=== PATIENT | female | born 2000 | race Caucasian/White ===

== ENCOUNTER 2022-07-12 02:23 | Day surgery (SDC) | payer MEDICAID ==
[~2022-07-12] VITALS: Ht 162.6 cm; Wt 59.0 kg
[2022-07-12] VITALS (8 sets, daily range): BP systolic 105–119; BP diastolic 63–81
[2022-07-12] MEDS ORDERED: IOHEXOL 350 MG/ML 100 ML (OMNIPAQUE 350) VIAL IV ONE (03:30)
[2022-07-12] MEDS ORDERED: LACTATED RINGERS 1,000 ML IV ONE (03:30)
[2022-07-12] MEDS ORDERED: PANTOPRAZOLE 40 MG (PROTONIX) VIAL IV ONE (03:30)
[2022-07-12] MEDS ORDERED: ONDANSETRON 4 MG/2 ML (SDV) Z0FRAN IVP ONE (03:30)
[2022-07-12] MEDS ORDERED: NS 100 ML (IVPB) BAG IV ONE (03:30)
[2022-07-12] MEDS ORDERED: HOLD METFORMIN - RECEIVED CONTRAST 20 ML VIAL IV SCH (03:30)
[2022-07-12 03:41] LABS: BILIRUBIN,URINE NEGATIVE (NEGATIVE); CLARITY,URINE CLEAR; COLOR,URINE YELLOW; GLUCOSE, URINE (UA) NEGATIVE (NEGATIVE); KETONES,URINE NEGATIVE (NEGATIVE); LEUKOCYTE ESTERASE ,URINE TRACE (NEGATIVE); NITRITE,URINE NEGATIVE (NEGATIVE); PROTEIN,URINE NEGATIVE (NEGATIVE)
[2022-07-12 03:47] LABS: BASOPHILS % (AUTO) 0 % (0-10); EOSINOPHILS # (AUTO) 0.1 10^3/uL (0.0-0.3); EOSINOPHILS % (AUTO) 1 % (0-10); HEMATOCRIT 39 % (35-52); HEMOGLOBIN 13.4 g/dL (11.5-16.0); LYMPHOCYTES # (AUTO) 1.3 10^3/uL (1.0-4.0); LYMPHOCYTES % (AUTO) 10 % (12-44); MEAN CORPUSCULAR HEMOGLOBIN 33 pg (25-34); MEAN CORPUSCULAR HGB CONC 34 g/dL (32-36); MEAN CORPUSCULAR VOLUME 95 fL (80-99); MEAN PLATELET VOLUME 9.9 fL (9.0-12.2); MONOCYTES # (AUTO) 0.8 10^3/uL (0.0-1.0); MONOCYTES % (AUTO) 6 % (0-12); NEUTROPHILS # (AUTO) 10.1 10^3/uL (1.8-7.8); NEUTROPHILS % (AUTO) 82 % (42-75); PLATELET COUNT 205 10^3/uL (130-400); WHITE BLOOD COUNT 12.2 10^3/uL (4.3-11.0)
[2022-07-12 03:49] LABS: AMPHETAMINE SCREEN, URINE NEGATIVE (NEGATIVE); BARBITURATE SCREEN URINE NEGATIVE (NEGATIVE); BENZODIAZEPINES SCREEN URINE NEGATIVE (NEGATIVE); CANNABINOID SCREEN, URINE NEGATIVE (NEGATIVE); COCAINE SCREEN URINE NEGATIVE (NEGATIVE); METHADONE STAT NEGATIVE (NEGATIVE); OPIATE SCREEN URINE NEGATIVE (NEGATIVE); OXYCODONE STAT NEGATIVE (NEGATIVE); PROPOXYPHENE STAT NEGATIVE (NEGATIVE); TRICYCLIC ANTIDEPRESSANTS SCRE NEGATIVE (NEGATIVE)
[2022-07-12 04:01] LABS: ALBUMIN 4.6 GM/DL (3.2-4.5)
[2022-07-12 04:02] LABS: AMYLASE 42 U/L (25-125); CHLORIDE 106 MMOL/L (98-107); POTASSIUM 3.6 MMOL/L (3.6-5.0); SODIUM 137 MMOL/L (135-145)
[2022-07-12 04:03] LABS: BACTERIA,URINE FEW /HPF; WBC,URINE 0-2 /HPF
[2022-07-12 04:04] LABS: GLUCOSE 97 MG/DL (70-105); TOTAL PROTEIN 7.6 GM/DL (6.4-8.2)
[2022-07-12 04:05] LABS: CARBON DIOXIDE 20 MMOL/L (21-32)
[2022-07-12 04:06] LABS: BILIRUBIN,TOTAL 0.6 MG/DL (0.1-1.0)
[2022-07-12 04:08] LABS: ALKALINE PHOSPHATASE 65 U/L (40-136); CREATININE SERUM 0.74 MG/DL (0.60-1.30); GFR ESTIMATED 119
[2022-07-12 04:09] LABS: BUN/CREATININE RATIO 23
[2022-07-12 04:11] LABS: ALANINE AMINOTRANSFERASE 12 U/L (0-55); LIPASE 23 U/L (8-78)
--- NOTE | 2022-07-12 04:52 | ED Abdominal Pain ---
General Chief Complaint: Abdominal/GI Problems Stated Complaint: UPPER ABD PAIN Nursing Triage Note: Pt ambulates to ED 7 with c/o upper abdominal pain since 8PM. States that it feels like "a stitch in your side, but on top of stomach". Pt last ate at 7PM, reports normal BM earlier in day, slight nausea reported upon arrival. Pt denies taking any medication for the pain, rating 8/10, reports being unable to sleep, so came to ER. 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 NORMAL. ON OCP'S. NO HISTORY OF SIMILAR NO PAST MEDICAL HISTORY NO PRIOR [id number] DENIES SMOKING, OCCASIONAL ALCOHOL AND DENIES DRUG USE PSU STUDENT FROM [place], [place] Allergies and Home Medications Allergies Coded Allergies: No Known Drug Allergies (Unverified , 07/12/22) Review of Systems Review of Systems Constitutional: no symptoms reported Respiratory: No Symptoms Reported Cardiovascular: No Symptoms Reported Gastrointestinal: See HPI, Abdominal Pain; Denies Constipated, Denies Diarrhea; Nausea; Denies Poor Appetite, Denies Vomiting Genitourinary: No Symptoms Reported Musculoskeletal: no symptoms reported Skin: no symptoms reported Psychiatric/Neurological: No Symptoms Reported Endocrine: No Symptoms Reported Hematologic/Lymphatic: No Symptoms Reported Past Aaypzzd-Ozbsja-Imfyfy Hx Patient Social History Tobacco Use?: No Use of E-Cig and/or Vaping dev: No Substance use?: No Alcohol Use?: Yes Alcohol Frequency: Rarely Pt feels they are or have been: No Immunizations Up To Date Influenza Vaccine Up-to-Date: No; Not Current COVID19 Vaccine Card Maker: None Past Medical History Surgeries: No Respiratory: No Cardiac: No Neurological: No : No Last Menstrual Period: Jun 21, 2022 Reproductive Disorders: No Genitourinary: No Gastrointestinal: No Musculoskeletal: No Endocrine: No HEENT: No Cancer: No Psychosocial: No Integumentary: No Blood Disorders: No Physical Exam Vital Signs Vital Signs - First Documented 07/12/22 03:17 Temp 35.6 Pulse 74 Resp 16 B/P (MAP) 112/83 (93) Pulse Ox 100 O2 Delivery Room Air Capillary Refill : Height/Weight/BMI Height: '" Weight: lbs. oz. kg; 22.00 BMI Method: General Appearance: WD/WN, no apparent distress, thin, other (WALKS UPRIGHT AND MOVES WITHOUT DIFFICULTY) HEENT: PERRL/EOMI; No scleral icterus (R), No scleral icterus (L) Neck: normal inspection Respiratory: normal breath sounds, no respiratory distress, no accessory muscle use Cardiovascular: regular rate, rhythm, no murmur Gastrointestinal: normal bowel sounds, soft, no organomegaly, no pulsatile mass; No distended, No guarding, No rebound; tenderness (MILD EPIGASTRIC AND MILD SUPRAPUBIC TENDERNESS); No hernia, No mass Extremities: normal inspection, normal capillary refill Back: normal inspection, no CVA tenderness 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, no motor/sensory deficits, alert, normal mood/affect, oriented x 3 Skin: normal color, warm/dry, tattoos/piercings Progress/Results/Core Measures Results/Orders Lab Results Laboratory Tests Test 07/12/22 03:26 07/12/22 03:38 Range/Units Urine Color YELLOW Urine Clarity CLEAR Urine pH 6.0 5-9 Urine Specific [place] >=1.030 1.016-1.022 Urine Protein NEGATIVE NEGATIVE Urine Glucose (UA) NEGATIVE NEGATIVE Urine Ketones NEGATIVE NEGATIVE Urine Nitrite NEGATIVE NEGATIVE Urine Bilirubin NEGATIVE NEGATIVE Urine Urobilinogen 0.2 < = 1.0 MG/DL Urine Leukocyte Esterase TRACE H NEGATIVE Urine RBC (Auto) TRACE-I H NEGATIVE Urine RBC NONE /HPF Urine WBC 0-2 /HPF Urine Crystals NONE /LPF Urine Bacteria FEW H /HPF Urine Casts NONE /LPF Urine Mucus NEGATIVE /LPF Urine Culture Indicated YES Urine Opiates Screen NEGATIVE NEGATIVE Urine Oxycodone Screen NEGATIVE NEGATIVE Urine Methadone Screen NEGATIVE NEGATIVE Urine Propoxyphene Screen NEGATIVE NEGATIVE Urine Barbiturates Screen NEGATIVE NEGATIVE Ur Tricyclic Antidepressants Screen NEGATIVE NEGATIVE Urine Phencyclidine Screen NEGATIVE NEGATIVE Urine Amphetamines Screen NEGATIVE NEGATIVE Urine Methamphetamines Screen NEGATIVE NEGATIVE Urine Benzodiazepines Screen NEGATIVE NEGATIVE Urine Cocaine Screen NEGATIVE NEGATIVE Urine Cannabinoids Screen NEGATIVE NEGATIVE White Blood Count 12.2 H 4.3-11.0 10^3/uL Red Blood Count 4.11 3.80-5.11 10^6/uL Hemoglobin 13.4 11.5-16.0 g/dL Hematocrit 39 35-52 % Mean Corpuscular Volume 95 80-99 fL Mean Corpuscular Hemoglobin 33 25-34 pg Mean Corpuscular Hemoglobin Concent 34 32-36 g/dL Red Cell Distribution Width 12.1 10.0-14.5 % Platelet Count 205 130-400 10^3/uL Mean Platelet Volume 9.9 9.0-12.2 fL Immature Granulocyte % (Auto) 0 % Neutrophils (%) (Auto) 82 H 42-75 % Lymphocytes (%) (Auto) 10 L 12-44 % Monocytes (%) (Auto) 6 0-12 % Eosinophils (%) (Auto) 1 0-10 % Basophils (%) (Auto) 0 0-10 % Neutrophils # (Auto) 10.1 H 1.8-7.8 10^3/uL Lymphocytes # (Auto) 1.3 1.0-4.0 10^3/uL Monocytes # (Auto) 0.8 0.0-1.0 10^3/uL Eosinophils # (Auto) 0.1 0.0-0.3 10^3/uL Basophils # (Auto) 0.0 0.0-0.1 10^3/uL Immature Granulocyte # (Auto) 0.0 0.0-0.1 10^3/uL Sodium Level 137 135-145 MMOL/L Potassium Level 3.6 3.6-5.0 MMOL/L Chloride Level 106 98-107 MMOL/L Carbon Dioxide Level 20 L 21-32 MMOL/L Anion Gap 11 5-14 MMOL/L Blood Urea Nitrogen 17 7-18 MG/DL Creatinine 0.74 0.60-1.30 MG/DL Estimat Glomerular Filtration Rate 119 BUN/Creatinine Ratio 23 Glucose Level 97 70-105 MG/DL Calcium Level 9.0 8.5-10.1 MG/DL Corrected Calcium 8.5-10.1 MG/DL Total Bilirubin 0.6 0.1-1.0 MG/DL Aspartate Amino Transf (AST/SGOT) 17 5-34 U/L Alanine Aminotransferase (ALT/SGPT) 12 0-55 U/L Alkaline Phosphatase 65 40-136 U/L Total Protein 7.6 6.4-8.2 GM/DL Albumin 4.6 H 3.2-4.5 GM/DL Amylase Level 42 25-125 U/L Lipase 23 8-78 U/L Serum Alcohol < 10 <10 MG/DL My Orders Orders - LEDY CROWELL DO Ed Iv/Invasive Line Start (07/12/22 03:24) Urine Bedside (07/12/22 03:24) Amylase (07/12/22 03:24) Cbc With Automated Diff (07/12/22 03:24) Comprehensive Metabolic Panel (07/12/22 03:24) Lipase (07/12/22 03:24) Ua Culture If Indicated (07/12/22 03:24) Ct Abdomen/Pelvis W (07/12/22 03:24) Ed Iv/Invasive Line Start (07/12/22 03:24) Lactated Ringers (Lr 1000 Ml Iv Solution (07/12/22 03:30) Ondansetron Injection (Zofran Injectio (07/12/22 03:30) Pantoprazole Injection (Protonix Injecti (07/12/22 03:30) Alcohol (07/12/22 03:24) Drug Screen Stat (Urine) (07/12/22 03:24) Iohexol Injection (Omnipaque 350 Mg/Ml 1 (07/12/22 03:30) Received Contrast (Hold Metformin- Contr (07/12/22 03:30) Ns (Ivpb) (Sodium Chloride 0.9% Ivpb Bag (07/12/22 03:30) Urine Culture (07/12/22 03:26) Medications Given in ED Current Medications Medications Dose Ordered Sig/Brock Route Start Time Stop Time Status Last Admin Dose Admin Iohexol 100 ml ONCE ONCE IV 07/12/22 03:30 07/12/22 03:31 DC 07/12/22 03:56 65 ML Lactated Ringer's 1,000 ml @ 0 mls/hr Q0M ONCE IV 07/12/22 03:30 07/12/22 03:31 DC 07/12/22 03:43 999 MLS/HR Ondansetron HCl 4 mg ONCE ONCE IVP 07/12/22 03:30 07/12/22 03:31 DC 07/12/22 03:43 4 MG Pantoprazole 40 mg ONCE ONCE IV 07/12/22 03:30 07/12/22 03:31 DC 07/12/22 03:43 40 MG Sodium Chloride 100 ml ONCE ONCE IV 07/12/22 03:30 07/12/22 03:31 DC 07/12/22 03:56 80 ML Vital Signs/I&O 07/12/22 03:17 Temp 35.6 Pulse 74 Resp 16 B/P (MAP) 112/83 (93) Pulse Ox 100 O2 Delivery Room Air Blood Pressure Mean: 93 Progress Progress Note : Progress Note GIVEN: -IV FLUIDS -ZOFRAN -PROTONIX Diagnostic Imaging Comments CT ABDOMEN/PELVIS-- Reviewed: Reviewed by Me Departure Departure-Patient Inst. Referrals: LEONIDAS GOLDMAN MD (PCP/Family) Primary Care Physician LEDY CROWELL DO Jul 12, 2022 04:52
[2022-07-12] MEDS ORDERED: fentaNYL INJ 100 MCG/2 ML AMP IVP ONE (06:00)
--- NOTE | 2022-07-12 06:26 | Consultation - Surgery ---
GUILLERMINA JANSEN 07/12/22 0626: History of Present Illness History of Present Illness Patient Consulted On(megha/time) 07/12/22 06:20 Date Seen by Provider: Jul 12, 2022 Time Seen by Provider: 06:00 History of Present Illness Kendal Perez is a 21 yo female that presenting to the ED with epigastric pain that radiates midline in the abdomen region. Pt is laying in the bed with her knees flexed. Pt is present with boyfriend and was able to ambulate inside the ED. This began about 8pm last night after she got off work. Pt states that at 7pm she ate a hot pocket, chips, and reeces pieces. Pt doesn't recall anything like this happening before. Pt describes pain as constant and sharp midline pain that started as a 5/10 but is now a 8/10. Nothing seems to make the pain better or worse. Pt is currently on control. Pt also states that she is nauseated, but hasn't vomited. Pt denies fever, chills, COHEN, numbness/tingling, vomiting, urinary pain, and constipation. Allergies and Home Medications Allergies Coded Allergies: No Known Drug Allergies (Unverified , 07/12/22) Past Ooqlwyg-Vlgmwt-Smfhgv Hx Patient Social History Smoking Status: Unknown if Ever Smoked Alcohol Use?: Yes (twice per month) Have you traveled recently?: No Surgeries History of Surgeries: No Respiratory History of Respiratory Disorde: No Cardiovascular History of Cardiac Disorders: No Neurological History of Neurological Disord: No Reproductive System : No Hx Reproductive Disorders: No Genitourinary History of Genitourinary Disor: No Gastrointestinal History of Gastrointestinal Di: No Musculoskeletal History of Musculoskeletal Dis: No Endocrine History of Endocrine Disorders: No HEENT History of HEENT Disorders: No Cancer History of Cancer: No Psychosocial History of Psychiatric Problem: No Integumentary History of Skin or Integumenta: No Blood Transfusions History of Blood Disorders: No Family Medical History Significant Family History: No Pertinent Family Hx (Denies family history of DM and HTN) Review of Systems-General Constitutional: No chills, No fever Respiratory: No cough, No dyspnea on exertion, No short of breath Gastrointestinal: No abdominal pain, No constipation, No diarrhea Genitourinary: No dysuria, No frequency : No Psychiatric/Neurological: Denies Headache, Denies Numbness, Denies Tingling Physical Exam-General Problems Physical Exam Vital Signs Vital Signs - First Documented 07/12/22 03:17 Temp 35.6 Pulse 74 Resp 16 B/P (MAP) 112/83 (93) Pulse Ox 100 O2 Delivery Room Air Capillary Refill : General Appearance: mild distress HEENT: PERRL/EOMI Neck: non-tender, supple Respiratory: chest non-tender, lungs clear, normal breath sounds, no respiratory distress, no accessory muscle use Cardiovascular: normal peripheral pulses, regular rate, rhythm, no edema, no gallop, no murmur Peripheral Pulses: 2+ Radial Pulses (R), 2+ Radial Pulses (L) Gastrointestinal: soft, guarding, tenderness (Midline) Rectal: deferred Extremities: normal range of motion, non-tender Neurologic/Psychiatric: normal mood/affect, oriented x 3 Skin: normal color, warm/dry Data Review Labs Laboratory Tests 07/12/22 03:26: Urine Color YELLOW, Urine Clarity CLEAR, Urine pH 6.0, Urine Specific [place] >=1.030, Urine Protein NEGATIVE, Urine Glucose (UA) NEGATIVE, Urine Ketones NEG ATIVE, Urine Nitrite NEGATIVE, Urine Bilirubin NEGATIVE, Urine Urobilinogen 0.2, Urine Leukocyte Esterase TRACEH, Urine RBC (Auto) TRACE-IH, Urine RBC NONE, Urine WBC 0-2, Urine Crystals NONE, Urine Bacteria FEWH, Urine Casts NONE, Urine Mucus NEGATIVE, Urine Culture Indicated YES, Urine Opiates Screen NEGATIVE, Urine Oxycodone Screen NEGATIVE, Urine Methadone Screen NEGATIVE, Urine Propoxyphene Screen NEGATIVE, Urine Barbiturates Screen NEGATIVE, Ur Tricyclic Antidepressants Screen NEGATIVE, Urine Phencyclidine Screen NEGATIVE, Urine Amphetamines Screen NEGATIVE, Urine Methamphetamines Screen NEGATIVE, Urine Benzodiazepines Screen NEGATIVE, Urine Cocaine Screen NEGATIVE, Urine Cannabinoids Screen NEGATIVE 07/12/22 03:38: White Blood Count 12.2H, Red Blood Count 4.11, Hemoglobin 13.4, Hematocrit 39, Mean Corpuscular Volume 95, Mean Corpuscular Hemoglobin 33, Mean Corpuscular Hemoglobin Concent 34, Red Cell Distribution Width 12.1, Platelet Count 205, Mean Platelet Volume 9.9, Immature Granulocyte % (Auto) 0, Neutrophils (%) (Auto) 82H, Lymphocytes (%) (Auto) 10L, Monocytes (%) (Auto) 6, Eosinophils (%) (Auto) 1, Basophils (%) (Auto) 0, Neutrophils # (Auto) 10.1H, Lymphocytes # (Auto) 1.3, Monocytes # (Auto) 0.8, Eosinophils # (Auto) 0.1, Basophils # (Auto) 0.0, Immature Granulocyte # (Auto) 0.0, Sodium Level 137, Potassium Level 3.6, Chloride Level 106, Carbon Dioxide Level 20L, Anion Gap 11, Blood Urea Nitrogen 17, Creatinine 0.74, Estimat Glomerular Filtration Rate 119, BUN/Creatinine Ratio 23, Glucose Level 97, Calcium Level 9.0, Corrected Calcium , Total Bilirubin 0.6, Aspartate Amino Transf (AST/SGOT) 17, Alanine Aminotransferase (ALT/SGPT) 12, Alkaline Phosphatase 65, Total Protein 7.6, Albumin 4.6H, Amylase Level 42, Lipase 23, Serum Alcohol < 10 Assessment/Plan Assessment/Plan Assessment/Plan Acute Appendicitis Urinary Tract Infection Consider possible Surgery depending on CT Abdomen Impression Consider Continuing IV Fluids, Zfran, and Protonix Supportive Care DON WILLINGHAM DO 07/12/22 0740: History of Present Illness History of Present Illness History of Present Illness 21 year old female seen in ED. Patient began having pain that started last night. 8/10 pain that began in the epigastric area but then moved to right lower abdomen. Constant sharp pain. Had nausea, no emesis. Movement makes worse. Ct scan with dilated appendix with appendicolith and ruptured right ovarian hemorrhagic cyst. Allergies and Home Medications Allergies Coded Allergies: No Known Drug Allergies (Unverified , 07/12/22) Patient Home Medication List Home Medication List Reviewed: Yes Past Unammbj-Xsudue-Bnxlid Hx Patient Social History Smoking Status: Never a Smoker Alcohol Use?: Yes (twice per month) Surgeries History of Surgeries: No Respiratory History of Respiratory Disorde: No Cardiovascular History of Cardiac Disorders: No Neurological History of Neurological Disord: No Genitourinary History of Genitourinary Disor: No Gastrointestinal History of Gastrointestinal Di: No Musculoskeletal History of Musculoskeletal Dis: No Endocrine History of Endocrine Disorders: No HEENT History of HEENT Disorders: No Cancer History of Cancer: No Psychosocial History of Psychiatric Problem: No Integumentary History of Skin or Integumenta: No Reviewed Nursing Assessment Reviewed/Agree w Nursing PMH: Yes Family Medical History Significant Family History: No Pertinent Family Hx Review of Systems-General Constitutional: No chills, No fever EENTM: No blurred vision, No double vision Respiratory: No cough, No dyspnea on exertion, No short of breath Gastrointestinal: abdominal pain (RLQ); No constipation, No diarrhea; nausea; No vomiting Genitourinary: No dysuria, No frequency Musculoskeletal: No back pain, No joint pain Skin: No change in color, No change in hair/nails Psychiatric/Neurological: Denies Anxiety, Denies Depressed, Denies Emotional Problems All Other Systems Reviewed Negative Unless Noted: Yes (Negative excepted noted.) Physical Exam-General Problems Physical Exam General Appearance: WD/WN, no apparent distress HEENT: PERRL/EOMI, normal ENT inspection Neck: non-tender, supple Respiratory: chest non-tender, no respiratory distress, no accessory muscle use Cardiovascular: regular rate, rhythm, no JVD Gastrointestinal: soft, tenderness (right lower abdominal pain) Rectal: deferred Back: normal inspection, no CVA tenderness Extremities: normal range of motion, non-tender Neurologic/Psychiatric: alert, normal mood/affect, oriented x 3 Skin: normal color, warm/dry Lymphatic: no adenopathy Assessment/Plan Assessment/Plan Assessment/Plan right lower quadrant abdominal acute appendicitis ruptured hemorrhagic right ovarian cys Patient discussed risks and benefits of laparoscopic appendectomy all other indicated procedures she and her boyfriend understand risks and benefits and wishes to proceed. consent obtained. To OR. Ancef/flagyl Supervisory-Addendum Brief Verification & Attestation Participated in pt care: history, MDM, physical Personally performed: exam, history, MDM, supervision of care Care discussed with: Medical Student Procedures: n/a Results interpretation: Verified all documentation Verification and Attestation of Medical Student E/M Service A medical student performed and documented this service in my presence. I reviewed and verified all information documented by the medical student and made modifications to such information, when appropriate. I personally performed the physical exam and medical decision making. Don Willingham, Jul 12, 2022,07:50 GUILLERMINA JANSEN Jul 12, 2022 06:26 DON WILLINGHAM DO Jul 12, 2022 07:40
[2022-07-12] MEDS ORDERED: LACTATED RINGERS 1,000 ML IV PRN (07:15)
[2022-07-12] MEDS ORDERED: SEVOFLURANE (ULTANE) 15 ML INHAL SOLN ONE ×2 (07:25→08:43)
[2022-07-12] MEDS ORDERED: fentaNYL INJ 100 MCG/2 ML AMP ONE (07:25)
[2022-07-12] MEDS ORDERED: ONDANSETRON 4 MG/2 ML (SDV) Z0FRAN ONE (07:25)
[2022-07-12] MEDS ORDERED: proPOfol 200 MG/20 ML (DIPRIVAN) VIAL IV ONE (07:25)
[2022-07-12] MEDS ORDERED: LIDOCAINE PF 2% 5 ML (XYLOCAINE) VIAL ONE (07:25)
[2022-07-12] MEDS ORDERED: ROCURONIUM 10 MG/ML 5 ML SYRINGE IV ONE (07:25)
[2022-07-12] MEDS ORDERED: MIDAZOLAM 2 MG/2 ML (VERSED) VIAL ONE (07:26)
--- NOTE | 2022-07-12 07:45 | Diagnostic Imaging Report ---
PROCEDURE: CT abdomen and pelvis with contrast. TECHNIQUE: Multiple contiguous axial images were obtained through the abdomen and pelvis after administration of intravenous contrast. Auto Exposure Controls were utilized during the CT exam to meet ALARA standards for radiation dose reduction. All CT scans use one or more of the following dose optimizing techniques: automated exposure control, MA and/or KvP adjustment based on patient size and exam type or iterative reconstruction. INDICATION: Epigastric pain COMPARISON: None available. FINDINGS: The visualized lung bases are clear. The liver and spleen are unremarkable. The adrenal glands are unremarkable. The pancreas is unremarkable. The gallbladder is unremarkable. The kidneys are unremarkable. No aneurysmal dilatation of the abdominal aorta. A 1.2 cm lobulated hyperenhancing lesion is noted within the right adnexa. The urinary bladder is decompressed, therefore not well evaluated. The appendix is mildly dilated measuring up to 1.2 cm. A fecalith is present within the appendix. No significant focal fluid collection adjacent to the appendix. No bowel obstruction. Tiny amount of free fluid. No free air. No acute osseous abnormality. IMPRESSION: Findings concerning for acute appendicitis with appendicolith in place with out evidence of perforation or abscess formation. Involuting right ovarian cyst. Additional findings as described above. Agree with preliminary interpretation. Dictated by: Dictated on workstation # [id number]
[2022-07-12] MEDS ORDERED: metroNIDAZOLE 500MG/100ML IVPB 100 ML ONE (07:53)
[2022-07-12] MEDS ORDERED: NS (IVPB) 50 ML ONE (07:53)
[2022-07-12] MEDS ORDERED: ceFAZolin INJECTION 1,000 MG ONE (07:53)
[2022-07-12] MEDS ORDERED: ceFAZolin INJECTION 1,000 MG in NS (IVPB) 50 ML IV ONE (08:00)
[2022-07-12] MEDS ORDERED: metroNIDAZOLE 500MG/100ML IVPB 100 ML IV ONE (08:00)
[2022-07-12] MEDS: BUP/EPI 0.25% 1:200,000 (MARCAINE) 30 ML VIAL ONE (08:17)
[2022-07-12] MEDS ORDERED: BUP/EPI 0.25% 1:200,000 (MARCAINE) 30 ML VIAL INJ ONE (08:36)
[2022-07-12] MEDS ORDERED: KETOROLAC 30 MG/ML VIAL ONE (08:38)
[2022-07-12] MEDS ORDERED: SUGAMMADEX 500 MG/5 ML VIAL (BRIDION) IV ONE (08:39)
[2022-07-12] MEDS ORDERED: HYDROmorphone 2 MG/ML VIAL (DILAUDID) ONE (08:48)
[2022-07-12] MEDS ORDERED: ACHD5005 PO (09:15)
[2022-07-12] MEDS ORDERED: ONDANSETRON 4 MG/2 ML (SDV) Z0FRAN IVP PRN (09:15)
[2022-07-12] MEDS ORDERED: DOCU-143 PO (09:15)
[2022-07-12] MEDS ORDERED: HYDROmorphone 2 MG/ML VIAL (DILAUDID) IV ONE (09:15)
--- NOTE | 2022-07-12 09:20 | Discharge Inst-Simple/Standard ---
Discharge Inst-Standard Discharge Medications New, Converted or Re-Newed RX: Transmitted to Pharmacy Patient Instructions/Follow Up Plan of Care/Instructions/FU: 2 weeks [place] Activity as Tolerated: No Discharge Diet: Regular Diet Other Inst to Patient Follow up Appt: Make appointment for 2 week. Instructions: No lifting greater than 10 pounds. No strenuous activity. May shower in 24 hours, no tub bath or soaking. Use incentive spirometer at home as directed. No Smoking Skin/Wound Care: You have special glue over your incision that will fall off on it's own. Symptoms to Report: Appetite Changes, Extremity Discoloration, Numbness/Tingling, Swelling Increased, Bleeding Excessive, Eyesight Changes, Pain Increased, Urine Color Change, Constipation(Persistent), Fever over 101 degree F, Pain/Pressure in chest, Urinating Difficulty, Cough Up/Vomit Blood, Heart Beat Irreg/Pounding, Pain/Pressure in jaw, Vaginal Bleeding Increase, Cramps in feet or legs, Lightheadedness, Pain/Pressure in shoulder, Diarrhea(Persistent), Memory Changes Suddenly, Questions/Concerns, Weight gain consecutive days, Dizziness/Fainting, Nausea/Vomiting, Shortness of Breath, Weight gain over 2 pounds If questions or concerns contact your physician Or seek help at emergency department. DON WILLINGHAM DO Jul 12, 2022 09:20
--- NOTE | 2022-07-12 09:22 | Anesthesia-General Post-Op ---
General Patient Condition Mental Status/LOC: Same as Preop Cardiovascular: Satisfactory Nausea/Vomiting: Absent Respiratory: Satisfactory Pain: Controlled Complications: Absent Post Op Complications Complications None Follow Up Care/Instructions Patient Instructions None needed. Anesthesia/Patient Condition Patient Condition Patient is doing well, no complaints, stable vital signs, no apparent adverse anesthesia problems. No complications reported per nursing. D/C home per [facility] Criteria: Yes SRAVANI JOHNSON CRNA Jul 12, 2022 09:22
--- NOTE | 2022-07-12 09:23 | Progress Note-Post Operative ---
Post-Operative Progess Note Surgeon (s)/Automotive Parts Specialist (s) Surgeon DON WILLINGHAM DO Automotive Parts Specialist: na Pre-Operative Diagnosis acute appendicitis Post-Operative Diagnosis same Procedure & Operative Findings Date of Procedure 07/12/22 Procedure Performed/Findings PROCEDURE: Laparoscopic appendectomy. COMPLICATIONS: None. INDICATIONS: The patient is a 21 year old female who has been having right lower quadrant abdominal pain. Patient's exam consistent with appendicitis. I discussed risk and benefits of laparoscopic appendectomy and all indicated procedures with the possibility being a normal appendix. The patient understands the risks and benefits and wishes to proceed. Consent was signed on the chart. DESCRIPTION OF PROCEDURE: The patient was taken to the operating suite, prepped and draped in a sterile fashion. Timeout was performed. Local anesthetic was infiltrated just above the umbilicus and 11-blade scalpel was used to make a skin incision. Cautery was used to dissect down to the fascia and scored. Kochers were used to grasp and elevate it and the abdomen was then entered. A 0 Vicryl was placed in a [id number] fashion for closure at the end of the case. The balloon trocar was inserted into the abdomen and pneumoperitoneum was achieved. Under direct visualization of the laparoscope, a 5 mm trocar was placed in the suprapubic region and a 5 mm trocar was placed in the left lower quadrant. Appendix was located, Dilated appendix, minimal erythema. The base of the appendix was dissected around. Once at the base an Endo-STEPH 2.5 stapler was then fired across the base of the appendix. The mesoappendix was then divided. It was then placed in an Endobag and removed through the 12 mm trocar site. Right ovary inspected normal appearance with small cysts present. No other pathology noted. The abdomen was then desufflated and the trocars were removed. The 0 Vicryl placed at the beginning of the case was then tied closing the 12 mm fascial defect. The skin was then closed using 4-0 Monocryl in a subcuticular fashion. The abdomen was then washed and dried and Skin Affix was placed over the incisions. The patient tolerated the procedure well without any complications and was taken to the recovery room in stable condition. Anesthesia Type general Estimated Blood Loss Estimated blood loss (mL): minimal Specimens/Packing Specimens Removed DON Morrison DO Jul 12, 2022 09:23
== END 2022-07-12 11:26 | disposition home or self-care (01) ==
LOC: ER 02:27 → SDC 07:39 → 4TH 10:10 → SDC 11:26
PROVIDERS: ATTEND Surgery
DX: K35.80 Unspecified acute appendicitis (principal); N83.201 Unspecified ovarian cyst, right side; N39.0 Urinary tract infection, site not specified; Z28.310 Unvaccinated for COVID-19
CPT/HCPCS: 36415; 74177; 80053; 80306; 80320; 81000; 82150; 83690; 84703; 85025; 87088; 88304